=== PATIENT | female | born 1980 | race Caucasian/White ===

== ENCOUNTER 2022-11-12 00:18 | Emergency (ER) | payer MEDICAID ==
[2022-11-12] MEDS ORDERED: Ketorolac 30 MG/ML SDV IM ONE (00:52)
[2022-11-12] MEDS ORDERED: Bacitracin Oint 1 GM U/D Packet TOP ONE (00:52)
== END 2022-11-12 01:38 | disposition home or self-care (01) ==
LOC: JP.ED 00:18
DX: T23.222A Burn of second degree of single left finger (nail) except thumb, initial encounter (principal); Z88.6 Allergy status to analgesic agent; Z91.040 Latex allergy status; Z88.8 Allergy status to other drugs, medicaments and biological substances; Z79.899 Other long term (current) drug therapy; X00.0XXA Exposure to flames in uncontrolled fire in building or structure, initial encounter
CPT/HCPCS: 96372; 99283; J1885